=== PATIENT | male | born 1965 ===

== ENCOUNTER 2018-10-30 12:43 | Emergency (ER) | payer OTHER ==
[2018-10-30 12:53] VITALS: BMI 29.7
[2018-10-30 12:54] VITALS: TEMP 97.5; O2SAT 96
[2018-10-30] MEDS ORDERED: Lidocaine 1% Inj (20ml) IJ STA (13:04)
--- NOTE | 2018-10-30 13:07 | ED PDOC ---
Arrival/HPI - General Historian: Patient - History of Present Illness Narrative History of Present Illness (Text): 10/30/18 13:04 53 y/o male, no significant pmh, nkda, last tetanus under 6 years ago, c/o lt. hand laceration x 2 hours. Pt. stated that he was hit by the machine container, sustained laceration on the lt. hand palmar laterally, no numbness or tingling, no difficulty bending or extension, mild pain, no dizziness, no rash, no other medical or psychological complaints. Past Medical History - Provider Review Nursing Documentation Reviewed: Yes Family/Social History - Physician Review Nursing Documentation Reviewed: Yes Family/Social History: Unknown Family HX Allergies/Home Meds Allergies/Adverse Reactions: Allergies No Known Allergies Allergy (Verified 10/30/18 12:52) Review of Systems - Review of Systems Constitutional: absent: Fatigue, Fevers Eyes: absent: Vision Changes ENT: absent: Hearing Changes Respiratory: absent: SOB, Cough Cardiovascular: absent: Chest Pain Gastrointestinal: absent: Abdominal Pain, Diarrhea, Nausea, Vomiting Musculoskeletal: absent: Arthralgias, Back Pain Skin: Laceration. absent: Rash, Pruritis Neurological: absent: Headache, Dizziness Psychiatric: absent: Anxiety, Depression, Suicidal Ideation Physical Exam Vital Signs Reviewed: Yes Vital Signs Temp Pulse Resp BP Pulse Ox 10/30/18 12:51 97.5 F L 87 17 133/108 H 96 Temperature: Afebrile Blood Pressure: Hypertensive Pulse: Regular Respiratory Rate: Normal Appearance: Positive for: Well-Appearing, Non-Toxic, Comfortable Pain Distress: Mild Mental Status: Positive for: Alert and Oriented X 3 - Systems Exam Head: Present: Atraumatic, Normocephalic Pupils: Present: PERRL Extroacular Muscles: Present: EOMI Conjunctiva: Present: Normal Mouth: Present: Moist Mucous Membranes Neck: Present: Normal Range of Motion Respiratory/Chest: Present: Clear to Auscultation, Good Air Exchange. No: Respiratory Distress, Accessory Muscle Use Cardiovascular: Present: Regular Rate and Rhythm, Normal S1, S2. No: Murmurs Abdomen: No: Tenderness, Distention, Peritoneal Signs Back: Present: Normal Inspection Upper Extremity: Present: Normal Inspection, Other (Lt. hand: visible ventral aspect approximately 5cm/3cm/2cm intermediate depth laceration noted, no visible tendon/ligament injury, normal 2pts. finger discrimination, FROM without limitation, sensation intact, motor 5/5, +radial pulse, capillary refill< 2 seconds, neurovascular intact. ). No: Cyanosis, Edema Lower Extremity: Present: Normal Inspection. No: Edema Neurological: Present: GCS=15, CN II-XII Intact, Speech Normal Skin: Present: Warm, Dry, Normal Color. No: Rashes Psychiatric: Present: Alert, Oriented x 3, Normal Insight, Normal Concentration Medical Decision Making ED Course and Treatment: 10/30/18 13:07 -Lt. hand xray -IV ancef/toradol -will suture -observe and reassess 10/30/18 15:25 -Xray show no fracture or dislocation PROCEDURE: LACERATION REPAIR Performed by the emergency provider Location: rt. hand Length: 10 cm Description: {"clean wound edges","no foreign bodies"} Distal CMS: Normal. No deficits. Neurovascularly intact. Anesthesia: Lidocaine 1% 1cc Preparation: The wound was cleaned with NS 2000cc and clean with betadine. The area was prepped and draped in the usual sterile fashion. Exploration: The wound was explored and no foreign bodies were found. Procedure: The wound was closed with 5-0 nylon. There was {good / appropriate / adequate / loose} approximation. In total, 23 were used. Post-Procedure: Good closure and hemostasis. The patient tolerated the procedure well and there were no complications. CSM remains intact. Post procedure dressing applied. 10/30/18 15:23 -Pt. feels much better, sutured with all wound closed. There is no signs of compartment syndrome. -Discharge home with keflex, motrin, bacitracin oinment, keep the wound dry and clean for 2 days, return to the ER or see your own pmd and hand specialist within 2 days for wound check, return to the ER for any new or worsening signs or symptoms. - RAD Interpretation Radiology Orders: 10/30/18 13:03 HAND LEFT 3 VIEWS ROUTINE [RAD] Stat PROCEDURE: Left Hand Radiographs. HISTORY: lt. hand laceration laterally COMPARISON: None. TECHNIQUE: 3 views obtained. FINDINGS: BONES: Normal. No fracture. JOINTS: Normal. No osteoarthritic changes. SOFT TISSUES: Normal. OTHER FINDINGS: None. IMPRESSION: Normal left hand radiographs. [employer] Clerk: Radiologist - Medication Orders Current Medication Orders: Cefazolin Sodium/Dextrose (Ancef Iv 2 Gm Duplex) 2 gm in 50 mls @ 50 mls/hr IVPB STAT ALBIN; Protocol Ketorolac Tromethamine (Toradol) 30 mg IVP STAT STA Stop: 10/30/18 13:04 - PA / REGISTERED PRIVATE DUTY NURSE / Resident Statement / has reviewed & agrees with the documentation as recorded. Disposition/Present on Arrival - Present on Arrival Any Indicators Present on Arrival: No History of DVT/PE: No History of Uncontrolled Diabetes: No Urinary Catheter: No History of Decub. Ulcer: No - Disposition Have Diagnosis and Disposition been Completed?: Yes Diagnosis: Hand laceration Disposition: HOME/ ROUTINE Disposition Time: 15:28 Patient Plan: Discharge Condition: GOOD Additional Instructions: -Discharge home with keflex, motrin, bacitracin oinment, keep the wound dry and clean for 2 days, return to the ER or see your own pmd and hand specialist within 2 days for wound check, return to the ER for any new or worsening signs or symptoms. Prescriptions: Bacitracin Ointment [Bacitracin] 1 appful TOP BID #15 g Cephalexin [Keflex] 500 mg PO QID #40 capsule Ibuprofen [Motrin Tab] 600 mg PO QID PRN #30 tab PRN Reason: Other Referrals: Robert Zhu MD [Staff Provider] - Follow up with primary [facility] [place] [Outside] - Follow up with primary Forms: WORK NOTE
[2018-10-30] MEDS ORDERED: ceFAZolin IV 2 gm in Dextrose 2 GM/50 ML BAG IVPB ONE (13:15)
[2018-10-30 14:06] VITALS: RESP 18
--- NOTE | 2018-10-30 14:44 | RAD ---
PROCEDURE: Left Hand Radiographs. HISTORY: lt. hand laceration laterally COMPARISON: None. TECHNIQUE: 3 views obtained. FINDINGS: BONES: Normal. No fracture. JOINTS: Normal. No osteoarthritic changes. SOFT TISSUES: Normal. OTHER FINDINGS: None. IMPRESSION: Normal left hand radiographs.
[2018-10-30] MEDS ORDERED: Bacitracin 500 Units/gm Oint Foilpak UD TOP ONE (15:06)
[2018-10-30 15:35] VITALS: BP 132/75; PULSE 75
== END 2018-10-30 15:42 | disposition home or self-care (01) ==
LOC: ED 12:43
DX: S61.412A Laceration without foreign body of left hand, initial encounter (principal); W31.89XA Contact with other specified machinery, initial encounter; Y92.89 Other specified places as the place of occurrence of the external cause; Y99.0 Civilian activity done for income or pay
CPT/HCPCS: 12004; 73130; 96365; 96375; 99284; J0690; J1885

== ENCOUNTER 2018-11-11 11:28 | Emergency (ER) | payer OTHER, MEDICAID | END 2018-11-11 13:05 | disposition home or self-care (01) | LOC: ED 11:28 ==

== ENCOUNTER 2018-11-14 13:36 | Emergency (ER) | payer OTHER, MEDICAID ==
[2018-11-14 13:37] VITALS: BMI 30.5
[2018-11-14 13:45] VITALS: BP 144/92; PULSE 84; RESP 18; TEMP 97.4; O2SAT 95
[2018-11-14] MEDS ORDERED: Bacitracin 500 Units/gm Oint Foilpak UD TOP ONE (14:09)
--- NOTE | 2018-11-14 14:12 | ED PDOC ---
Arrival/HPI - General Chief Complaint: Suture/Staple Removal Time Seen by Provider: 11/14/18 13:43 Historian: Patient - History of Present Illness Narrative History of Present Illness (Text): 11/14/18 14:10 53 year old male, with no significant past medical history, who presents to the emergency department for wound reevaluation. Patient reports he injured his left hand 2 weeks ago and had multiple sutures and antibiotics at the time. He reports some sutures were removed and states he came last week and is here this week for a reevaluation. He denies any fever, chills, headache, purulent discharge, or any other somatic complaints. Time/Duration: < month Symptom Onset: Gradual Symptom Course: Unchanged Activities at Onset: Light Context: Home Past Medical History - Provider Review Nursing Documentation Reviewed: Yes - Infectious Disease Hx of Infectious Diseases: None - Tetanus Immunization Tetanus Immunization: Up to Date - Psychiatric Hx Substance Use: No - Surgical History Other/Comment: R knee sx - torn meniscus - Anesthesia Hx Anesthesia: Yes Hx Anesthesia Reactions: No Hx Malignant Hyperthermia: No Family/Social History - Physician Review Nursing Documentation Reviewed: Yes Family/Social History: Unknown Family HX Smoking Status: Never Smoked Hx Alcohol Use: No Hx Substance Use: No Allergies/Home Meds Allergies/Adverse Reactions: Allergies No Known Allergies Allergy (Verified 11/14/18 13:41) Review of Systems - Physician Review All systems were reviewed & negative as marked: Yes - Review of Systems Constitutional: absent: Fevers Respiratory: SOB Cardiovascular: absent: Chest Pain Gastrointestinal: absent: Nausea Skin: Other (no purulent discharge from wound) Neurological: absent: Headache Endocrine: absent: Diaphoresis Physical Exam Vital Signs Reviewed: Yes Vital Signs Temp Pulse Resp BP Pulse Ox 11/14/18 13:37 97.4 F L 84 18 144/92 H 95 Temperature: Afebrile Blood Pressure: Normal Pulse: Regular Respiratory Rate: Normal Appearance: Positive for: Well-Appearing, Non-Toxic, Comfortable Pain Distress: None Mental Status: Positive for: Alert and Oriented X 3 - Systems Exam Head: Present: Atraumatic, Normocephalic Pupils: Present: PERRL Extroacular Muscles: Present: EOMI Conjunctiva: Present: Normal Mouth: Present: Moist Mucous Membranes Neck: Present: Normal Range of Motion Respiratory/Chest: Present: Clear to Auscultation, Good Air Exchange. No: Respiratory Distress, Accessory Muscle Use Cardiovascular: Present: Regular Rate and Rhythm, Normal S1, S2. No: Murmurs Abdomen: No: Tenderness, Distention, Peritoneal Signs Back: Present: Normal Inspection Upper Extremity: Present: Normal Inspection, NORMAL PULSES (intact radial pulses), Swelling (Slight 5th digit swelling. No pain with active or passive movement of digit.). No: Cyanosis, Edema Lower Extremity: Present: Normal Inspection. No: Edema Neurological: Present: GCS=15, Speech Normal Skin: Present: Warm, Dry, Normal Color, Other (well healed scar on palm on surface of left hand). No: Rashes Psychiatric: Present: Alert, Oriented x 3, Normal Insight, Normal Concentration Medical Decision Making ED Course and Treatment: 11/14/18 14:09 Impression: 53 year old male presents to the emergency department for wound reevaluation. Differential Diagnosis included but are not limited to: Plan: -- Bacitracin -- Reassess and disposition Prior Visits: Notes and results from previous visits were reviewed. Progress Notes: - Scribe Statement The provider has reviewed the documentation as recorded by the Scribe Олег Bey All medical record entries made by the Scribe were at my direction and personally dictated by me. I have reviewed the chart and agree that the record accurately reflects my personal performance of the history, physical exam, medical decision making, and the department course for this patient. I have also personally directed, reviewed, and agree with the discharge instructions and disposition. Disposition/Present on Arrival - Present on Arrival History of DVT/PE: No History of Uncontrolled Diabetes: No Urinary Catheter: No History of Decub. Ulcer: No History Surgical Site Infection Following: None - Disposition Diagnosis: Encounter for assessment of wound, Visit for suture removal Disposition: HOME/ ROUTINE Patient Problems: Current Active Problems Problem Status Onset Encounter for assessment of wound Acute Visit for suture removal Acute Condition: IMPROVED Discharge Instructions (ExitCare): Stitches Removal Print Language: YI Additional Instructions: All medical record entries made by the Scribe were at my direction and personally dictated by me. I have reviewed the chart and agree that the record accurately reflects my personal performance of the history, physical exam, medical decision making, and the department course for this patient. I have also personally directed, reviewed, and agree with the discharge instructions and disposition. Please follow up with your PCP and take your medications Pleas visit [facility] for your care Please take the rest of your antibiotics Referrals: [facility] [Outside] - Follow up with primary Forms: [employer] ([place])
[2018-11-14] MEDS ORDERED: Bacitracin 500 Units/gm Oint Foilpak UD ONE (14:16)
== END 2018-11-14 14:44 | disposition home or self-care (01) ==
LOC: ED 13:36
DX: Z48.02 Encounter for removal of sutures (principal)